=== PATIENT | female | born 2000 | race Caucasian/White ===

== ENCOUNTER 2024-01-31 21:20 | Emergency (ER) | payer MEDICAID, SELFPAY ==
[2024-01-31 21:22] VITALS: BP 129/70; PULSE 79; RESP 16; O2SAT 100; BMI 21.5
--- NOTE | 2024-01-31 21:33 | XRR_ITS ---
PROCEDURE INFORMATION: Exam: XR Chest Exam date and time: 01/31/2024 9:40 PM Age: 23 years old Clinical indication: Angina pectoris; Patient HX: Chest pain TECHNIQUE: Imaging protocol: Radiologic exam of the chest. Views: 1 view. COMPARISON: No relevant prior studies available. FINDINGS: Lungs: The lungs are clear. No pulmonary consolidation. Nonspecific right hilar prominence. Pleural spaces: No pleural effusion or pneumothorax. Heart/Mediastinum: Unremarkable. No cardiomegaly. Bones/joints: No acute osseous abnormalities are seen. XR/XR chest 1V portable [id number] IMPRESSION: 1. Nonspecific right hilar prominence. Recommend short interval follow-up versus nonemergent CT chest. 2. No acute cardiopulmonary disease.
[2024-01-31 22:15] LABS: Basophils # 0.1 10^3/uL (0.0-0.1); Basophils % 0.7 %; Eosinophils # 0.1 10^3/uL (0.0-0.8); Eosinophils % 1.4 %; Hematocrit 38.9 % (36-47); Lymphocytes # 4.2 10^3/uL (0.8-4.8); Lymphocytes % 40.9 %; Mean Corpuscular HGB Conc 31.4 g/dL (30-55); Mean Corpuscular Hemoglobin 27.7 pg (27-33); Mean Corpuscular Volume 88.4 fl (85-98); Monocytes # 0.8 10^3/uL (0.2-0.9); Monocytes % 7.3 %; Neutrophils # 5.13 10^3/uL (1.8-7.7); Neutrophils % 49.5 %; Nucleated Red Blood Cells % 0 %; Platelet Count 397 10^3/cmm (157-399); Red Cell Distribution Width 11.7 % (12.1-15.1); White Blood Count 10.34 10^3/uL (3.29-11.43)
--- NOTE | 2024-01-31 22:30 | ECG_ITS ---
[facility] Test Date: 2024-01-31 Pat Name: Celeste Wiley Department: Room: Gender: Female [employer] Operator: : 2000 Requested By: Elan Seo Order Number: [id number] Armando MD: Sydney Martines M.D. Measurements Intervals [place] Rate: 63 P: 43 [place]: 128 QRS: 59 QRSD: 90 T: 71 QT: 415 QTc: 425 Interpretive Statements SINUS RHYTHM POSSIBLE RIGHT VENTRICULAR CONDUCTION DELAY [RSR (QR) IN V1/V2] MODERATE T-WAVE ABNORMALITY, CONSIDER ANTERIOR ISCHEMIA [-0.1+ mV T-WAVE IN V3/V4] No previous ECG available for comparison Electronically Signed On 02-01-2024 19:28:08 CDT by Sydney Martines M.D. [email or web address] [email or web address] [email or web address] [facility].[employer]/store/OM/[id number]
[2024-01-31 22:33] LABS: Troponin(5th) Baseline < 6 ng/L (0-10)
[2024-01-31 22:37] VITALS: BP 99/78; PULSE 77; RESP 18; O2SAT 99
[2024-01-31 22:37] LABS: Chloride 104 mmol/L (98-107); Potassium 4.2 mmol/L (3.5-5.1); Sodium 139 mmol/L (136-145)
--- NOTE | 2024-01-31 22:39 | CTR_ITS ---
PROCEDURE INFORMATION: Exam: CT Chest With Contrast; Diagnostic Exam date and time: 01/31/2024 10:49 PM Age: 23 years old Clinical indication: Other: Abnormal cxr; Prior surgery; Surgery date: 6+ months; Surgery type: Open heart for coronary repair. Node ablation; Patient HX: PT C/O chest pain. RT hilar prominence noted on cxr. ; Additional info: Cp, eval cxr findings TECHNIQUE: Imaging protocol: Diagnostic computed tomography of the chest with contrast. Radiation optimization: All CT scans at this facility use at least one of these dose optimization techniques: automated exposure control; mA and/or kV adjustment per patient size (includes targeted exams where dose is matched to clinical indication); or iterative reconstruction. Contrast material: OMNI 350; Contrast volume: 100 ml; Contrast route: INTRAVENOUS (IV); COMPARISON: CR (CHEST, ) 01/31/2024 9:40 PM RADIATION DOSE METRICS: Total DLP (mGy-cm): 195.39 FINDINGS: Lungs: Calcified granuloma in the right lower lobe. 8 mm adjacent ground-glass nodule likely postinflammatory nature. No consolidation. No pulmonary mass or suspicious pulmonary nodule. Pleural spaces: No pleural effusion or pneumothorax. Heart: Heart size is within normal limits. There is no pericardial effusion or pericardial thickening. Coronary arteries: No coronary artery calcification. Lymph nodes: There are no enlarged mediastinal, axillary, or hilar lymph nodes identified. Multiple calcified right hilar lymph nodes which account for abnormality on recent chest radiograph. Vasculature: The aorta is normal in course and caliber. No significant atherosclerotic calcifications are present. Spleen: Calcified splenic granulomata are noted. The spleen is otherwise normal. Bones/joints: No acute osseous abnormalities are seen. Soft tissues: The soft tissues are within normal limits. CT/CT chest w con* [id number] IMPRESSION: 1. Multiple calcified right hilar lymph nodes which account for abnormality on recent chest radiograph. Correlate with old granulomatous disease. 2. 8 mm ground-glass nodule adjacent to calcified granuloma in the right lower lobe likely post inflammatory in nature. See comments section for Fleischner follow-up recommendations. 3. No evidence of acute cardiopulmonary disease. COMMENTS: Recommend CT Chest at 6-12 months to confirm persistence of the nodule, then CT Chest at 3 years and 5 years. (Reference: [place]) REFERENCES: MacMahon H, et al. Guidelines for Management of Incidental Pulmonary Nodules Detected on CT Images: From the Fleischner Society 2017. Radiology. 2017;284(1):228-243.
[2024-01-31 22:49] LABS: Alanine Aminotransferase 7 U/L (0-33); Albumin Level 4.3 g/dL (3.5-5.2); Alkaline Phosphatase 75 U/L (35-105); Anion Gap 16.2 (5-19); Aspartate Amino Transferase 14 U/L (0-32); Blood Urea Nitrogen 9 mg/dL (6-20); Calcium 9.4 mg/dL (8.5-10.5); Carbon Dioxide 23 mmol/L (22-29); Globulin 2.8 g/dL (1.3-4.6); Glucose 101 mg/dL (65-115); Magnesium 1.7 mg/dL (1.7-2.3); Osmolality Calculated 289 mOsm/kg (285-295); Total Bilirubin 0.4 mg/dL (0.15-1.2); Total Protein 7.1 g/dL (6.6-8.7)
[2024-01-31] MEDS: iohexol 350 mg/mL 500 mL Btl (per mL) IV (22:50)
--- NOTE | 2024-01-31 23:29 | ED_ITS ---
Documented by User: CHRISTINA Luciano 01/31/24 23:39 HPI - Chest Pain 2 General: Chief Complaint: Chest Pain Stated Complaint: Chest Pain Time Seen by Provider: 01/31/24 21:54 Source: patient Mode of arrival: ambulatory Limitations: no limitations History of Present Illness: Patient is a 23-year-old female presenting to the emergency department complaining of chest pain for the past 3 days. She is was seen at [facility] in [place] yesterday for the same thing where she had a negative cardiac workup. She notes today that the pain has continued and shoots through to her back and down her right arm. She notes a history of right coronary artery unroofing procedure and states she recently had sternal plates taken out. She is noting some dizziness and shortness of breath. 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 She is denying any nausea, vomiting, palpitations, or any other symptoms. She notes that her pain has been constant and is central in location. She has never had this pain prior to 72 hours ago. It occurred at rest. MD complaint: chest pain Pertinent past history: other (prior cardiac surgery) Onset (ago): day(s) Timing of current episode: constant Prior episodes: No Onset: during rest Pain location: substernal Pain radiation: right arm and back Severity: moderate Quality: sharp Relieving factors: nothing Exacerbating factors: nothing Associated symptoms: Reports dyspnea; Deny abdominal pain, fever(s), nausea, palpitations or vomiting Review of Systems 2 General: Reports: 10 or more systems reviewed and unremarkable except in HPI and below Const: Denies: fever(s), chills or fatigue Eyes: Denies: change in vision ENMT: Denies: throat pain, ear or mastoid pain or nasal discharge Card: Reports: chest pain; Denies: palpitations, swelling of feet/ankles or lightheadedness Resp: Reports: dyspnea; Denies: productive cough or wheezing GI: Denies: abdominal pain, nausea, vomiting, diarrhea or constipation : Denies: flank pain, difficulty voiding, dysuria or urinary frequency Musc: Denies: neck pain, back pain or joint pain Skin/Breast: Denies: rash Neuro: Reports: dizziness; Denies: headache(s), numbness in extremities or weakness in extremities Physical Exam 2 Const: COMMON NORMALS: no acute distress, patient oriented x3 and no limitations GENERAL APPEARANCE: cooperative, comfortable and well developed ORIENTATION/CONSCIOUSNESS: Yes awake, Yes oriented to person, Yes oriented to place and Yes oriented to time HENMT: COMMON NORMALS: normocephalic, atraumatic and hearing grossly normal bilaterally HEAD & SCALP: normocephalic and atraumatic Eye: COMMON NORMALS: Equal, round and reactive pupils present, EOMs intact bilaterally and conjunctivae normal CONJUNCTIVA: Yes conjunctivae normal P UPIL: Yes Equal, round and reactive pupils present Neck/C-Spine: COMMON NORMALS: full ROM, supple and no JVD Chest: CHEST: Yes Surgical scars present (Chest) (Postoperative sternotomy scar) Resp: COMMON NORMALS: normal respiratory effort, No retractions, No use of accessory muscles and clear to auscultation bilaterally AUSCULTATION: clear to auscultation bilaterally Cardio: COMMON NORMALS: no JVD, regular rate, regular rhythm, No clicks present (Cardio), No murmurs present (Cardio) and No rub (Cardio) RATE: r egular rate RHYTHM: regular rhythm GI: COMMON NORMALS: Normal to inspection, nondistended, normoactive bowel sounds present, Soft to palpation and non-tender AUSCULTATION: Yes normoactive bowel sounds PALPATION: Yes Soft to palpation RECTAL EXAM: d eferred Extremity: COMMON NORMALS: normal to inspection, full ROM and capillary refill normal Neuro: COMMON NORMALS: patient oriented x3, moves all extremities, no focal motor deficits and no sensory deficits noted SENSORIUM/ORIENTATION: Yes oriented to person, Yes oriented to place and Yes oriented to time Psych: COMMON NORMALS: mental status grossly normal and Normal thought process present THOUGHT PROCESS: Normal thought process present Skin: COMMON NORMALS: no rashes or lesions noted GENERAL SKIN EXAM: no rashes or lesions noted Course 2 Vital Signs: Vital signs: Vital Signs Pulse Rate 77 01/31/24 22:37 Respiratory Rate 18 01/31/24 22:37 Blood Pressure 99/78 01/31/24 22:37 Pulse Oximetry 99 01/31/24 22:37 Oxygen Delivery Me thod Room Air 01/31/24 21:22 MDM - Chest Pain Medical Decision Making This patient was seen for chest pain she has been having the past 3 days. She was seen in [facility] yesterday for the same complaints where she had a completely negative workup. She arrives stating the pain has continued, and she is discouraged that she had a few labs that were discounted yesterday. She notes that she had a low white count, hematocrit, and an elevated liver enzyme. She does report to me history of cardiac procedure, as well as multiple undocumented medical problems. She arrives with normal vitals, normal O2 sats. Examination revealed a nontoxic individual with normal cardiopulmonary auscultation. No other abnormalities reported on examination. CBC was normal. CMP was normal. Baseline troponin normal. Chest x-ray showed a right hilar prominence in which I ordered a chest CT for further evaluation. This showed a calcified right hilar lymph node, as well as an 8 mm nodule that was recommended to be followed up in 6-12 months. Her EKG was also unremarkable. I do have very low suspicion that patient's pain is cardiac in nature, and most likely musculoskeletal versus other benign etiologies. Patient has a operational meteorologist who she is not due to see until May, and I encouraged her to call their office to potentially schedule an earlier appointment. She is also due to have a consultation with primary care tomorrow in regards to medication reconciliation. I did encourage her to follow-up with primary care as well. I gave patient thorough return precautions including worsening of her chest pain or breathing difficulties, to which she understands. All other questions and concerns addressed at this time. Patient will be discharged home. Lab Data I reviewed the patient's lab results. 01/31/24 22:11 01/31/24 22:11 Radiology Impressions Chest X-Ray 01/31/24 21:33 IMPRESSION: 1. Nonspecific right hilar prominence. Recommend short interval follow-up versus nonemergent CT chest. 2. No acute cardiopulmonary disease. Chest CT 01/31/24 22:39 IMPRESSION: 1. Multiple calcified right hilar lymph nodes which account for abnormality on recent chest radiograph. Correlate with old granulomatous disease. 2. 8 mm ground-glass nodule adjacent to calcified granuloma in the right lower lobe likely post inflammatory in nature. See comments section for Fleischner follow-up recommendations. 3. No evidence of acute cardiopulmonary disease. COMMENTS: Recommend CT Chest at 6-12 months to confirm persistence of the nodule, then CT Chest at 3 years and 5 years. (Reference: [place]) REFERENCES: [place] Truong et al. Guidelines for Management of Incidental Pulmonary Nodules Detected on CT Images: From the Fleischner Society 2017. Radiology. 2017;284(1):228-243. Laboratory Results WBC 10.34 10^3/uL (3.29-11.43) 01/31/24 22:11 RBC 4.40 10^6/uL (3.85-5.65) 01/31/24 22:11 Hgb 12.20 g/dL (11.27-16.99) 01/31/24 22:11 Hct 38.9 % (36-47) 01/31/24 22:11 MCV 88.4 fl (85-98) 01/31/24 22:11 MCH 27.7 pg (27-33) 01/31/24 22:11 MCHC 31.4 g/dL (30-55) 01/31/24 22:11 RDW 11.7 % (12.1-15.1) L 01/31/24 22:11 Plt Count 397 10^3/cmm (157-399) 01/31/24 22:11 MPV 10.0 fL (7.4-10.4) 01/31/24 22:11 Neut % (Auto) 49.5 % 01/31/24 22:11 Lymph % (Auto) 40.9 % 01/31/24 22:11 Taney % (Auto) 7.3 % 01/31/24 22:11 Eos % (Auto) 1.4 % 01/31/24 22:11 Baso % (Auto) 0.7 % 01/31/24 22:11 Neut # (Auto) 5.13 10^3/uL (1.8-7.7) 01/31/24 22:11 Lymph # (Auto) 4.2 10^3/uL (0.8-4.8) 01/31/24 22:11 Taney # (Auto) 0.8 10^3/uL (0.2-0.9) 01/31/24 22:11 Eos # (Auto) 0.1 10^3/uL (0.0-0.8) 01/31/24 22:11 Baso # (Auto) 0.1 10^3/uL (0.0-0.1) 01/31/24 22:11 Nucleated RBC % (auto) 0 % 01/31/24 22:11 Nucleated RBCs # 0.0 /100WBC 01/31/24 22:11 Sodium 139 mmol/L (136-145) 01/31/24 22:11 Potassium 4.2 mmol/L (3.5-5.1) 01/31/24 22:11 Chloride 104 mmol/L (98-107) 01/31/24 22:11 Carbon Dioxide 23 mmol/L (22-29) 01/31/24 22:11 Anion Gap 16.2 (5-19) 01/31/24 22:11 BUN 9 mg/dL (6-20) 01/31/24 22:11 Creatinine 0.7 mg/dL (0.5-0.9) 01/31/24 22:11 GFR Calculation 102.0 mL/min (90-130) 01/31/24 22:11 Glucose 101 mg/dL (65-115) 01/31/24 22:11 Calculated Osmolality 289 mOsm/kg (285-295) 01/31/24 22:11 Calcium 9.4 mg/dL (8.5-10.5) 01/31/24 22:11 Magnesium 1.7 mg/dL (1.7-2.3) 01/31/24 22:11 Total Bilirubin 0.4 mg/dL (0.15-1.2) 01/31/24 22:11 AST 14 U/L (0-32) 01/31/24 22:11 ALT 7 U/L (0-33) 01/31/24 22:11 Alkaline Phosphatase 75 U/L (35-105) 01/31/24 22:11 Troponin T Baseline < 6 ng/L (0-10) 01/31/24 22:11 Total Protein 7.1 g/dL (6.6-8.7) 01/31/24 22:11 Albumin 4.3 g/dL (3.5-5.2) 01/31/24 22:11 Globulin 2.8 g/dL (1.3-4.6) 01/31/24 22:11 All radiology interpretation(s) finalized by discharge EKG Data EKG 1: I personally reviewed and interpreted this EKG as follows: EKG interpretation date: 01/31/24 EKG interpretation time: 22:31 Prior EKG tracings: not available for review Interpretation: Normal sinus rhythm. Rate 63. No acute ST segment changes. No previous for comparison. Discharge Plan Discharge Patient Disposition: Home Clinical Impression: Chest pain Qualifiers: Chest pain type: unspecified Qualified Code(s): R07.9 - Chest pain, unspecified Condition: Stable Discharge Orders: Discharge ED (Routine); Ordered 01/31/24 Ordered By: Saleem Edwards Discharge Diet: Usual diet Discharge Activity: Resume usual activity Patient Instructions: Chest Pain (ED) Activity Restrictions/Additional Instructions: Continue taking medications as normal. Please monitor for any new or concerning symptoms you have been present for reevaluation. Follow-up with primary care. Consider calling cardiology to get into see them before May. Stand Alone Forms: Work/School Release Coding Level of Care Code ED Travel Manager for Chg Fwd Documented by User: Jalil Call DO 02/05/24 09:03 HPI - Chest Pain 2 General: Chief Complaint: Chest Pain Stated Complaint: Chest Pain Time Seen by Provider: 01/31/24 21:54 Course 2 Vital Signs: Vital signs: Vital Signs Pulse Rate 77 01/31/24 22:37 Respiratory Rate 18 01/31/24 22:37 Blood Pressure 99/78 01/31/24 22:37 Pulse Oximetry 99 01/31/24 22:37 Oxygen Delivery Me thod Room Air 01/31/24 21:22 MDM - Chest Pain Medical Decision Making This patient was seen for chest pain she has been having the past 3 days. She was seen in [place] ER yesterday for the same complaints where she had a completely negative workup. She arrives stating the pain has continued, and she is discouraged that she had a few labs that were discounted yesterday. She notes that she had a low white count, hematocrit, and an elevated liver enzyme. She does report to me history of cardiac procedure, as well as multiple undocumented medical problems. She arrives with normal vitals, normal O2 sats. Examination revealed a nontoxic individual with normal cardiopulmonary auscultation. No other abnormalities reported on examination. CBC was normal. CMP was normal. Baseline troponin normal. Chest x-ray showed a right hilar prominence in which I ordered a chest CT for further evaluation. This showed a calcified right hilar lymph node, as well as an 8 mm nodule that was recommended to be followed up in 6-12 months. Her EKG was also unremarkable. I do have very low suspicion that patient's pain is cardiac in nature, and most likely musculoskeletal versus other benign etiologies. Patient has a operational meteorologist who she is not due to see until May, and I encouraged her to call their office to potentially schedule an earlier appointment. She is also due to have a consultation with primary care tomorrow in regards to medication reconciliation. I did encourage her to follow-up with primary care as well. I gave patient thorough return precautions including worsening of her chest pain or breathing difficulties, to which she understands. All other questions and concerns addressed at this time. Patient will be discharged home. Chart reviewed Lab Data 01/31/24 22:11 01/31/24 22:11 Radiology Impressions Chest X-Ray 01/31/24 21:33 IMPRESSION: 1. Nonspecific right hilar prominence. Recommend short interval follow-up versus nonemergent CT chest. 2. No acute cardiopulmonary disease. Chest CT 01/31/24 22:39 IMPRESSION: 1. Multiple calcified right hilar lymph nodes which account for abnormality on recent chest radiograph. Correlate with old granulomatous disease. 2. 8 mm ground-glass nodule adjacent to calcified granuloma in the right lower lobe likely post inflammatory in nature. See comments section for Fleischner follow-up recommendations. 3. No evidence of acute cardiopulmonary disease. COMMENTS: Recommend CT Chest at 6-12 months to confirm persistence of the nodule, then CT Chest at 3 years and 5 years. (Reference: [place]) REFERENCES: [place] Truong et al. Guidelines for Management of Incidental Pulmonary Nodules Detected on CT Images: From the Fleischner Society 2017. Radiology. 2017;284(1):228-243. Laboratory Results WBC 10.34 10^3/uL (3.29-11.43) 01/31/24 22:11 RBC 4.40 10^6/uL (3.85-5.65) 01/31/24 22:11 Hgb 12.20 g/dL (11.27-16.99) 01/31/24 22:11 Hct 38.9 % (36-47) 01/31/24 22:11 MCV 88.4 fl (85-98) 01/31/24 22:11 MCH 27.7 pg (27-33) 01/31/24 22:11 MCHC 31.4 g/dL (30-55) 01/31/24 22:11 RDW 11.7 % (12.1-15.1) L 01/31/24 22:11 Plt Count 397 10^3/cmm (157-399) 01/31/24 22:11 MPV 10.0 fL (7.4-10.4) 01/31/24 22:11 Neut % (Auto) 49.5 % 01/31/24 22:11 Lymph % (Auto) 40.9 % 01/31/24 22:11 Taney % (Auto) 7.3 % 01/31/24 22:11 Eos % (Auto) 1.4 % 01/31/24 22:11 Baso % (Auto) 0.7 % 01/31/24 22:11 Neut # (Auto) 5.13 10^3/uL (1.8-7.7) 01/31/24 22:11 Lymph # (Auto) 4.2 10^3/uL (0.8-4.8) 01/31/24 22:11 [place]aney # (Auto) 0.8 10^3/uL (0.2-0.9) 01/31/24 22:11 Eos # (Auto) 0.1 10^3/uL (0.0-0.8) 01/31/24 22:11 Baso # (Auto) 0.1 10^3/uL (0.0-0.1) 01/31/24 22:11 Nucleated RBC % (auto) 0 % 01/31/24 22:11 Nucleated RBCs # 0.0 /100WBC 01/31/24 22:11 Sodium 139 mmol/L (136-145) 01/31/24 22:11 Potassium 4.2 mmol/L (3.5-5.1) 01/31/24 22:11 Chloride 104 mmol/L (98-107) 01/31/24 22:11 Carbon Dioxide 23 mmol/L (22-29) 01/31/24 22:11 Anion Gap 16.2 (5-19) 01/31/24 22:11 BUN 9 mg/dL (6-20) 01/31/24 22:11 Creatinine 0.7 mg/dL (0.5-0.9) 01/31/24 22:11 GFR Calculation 102.0 mL/min (90-130) 01/31/24 22:11 Glucose 101 mg/dL (65-115) 01/31/24 22:11 Calculated Osmolality 289 mOsm/kg (285-295) 01/31/24 22:11 Calcium 9.4 mg/dL (8.5-10.5) 01/31/24 22:11 Magnesium 1.7 mg/dL (1.7-2.3) 01/31/24 22:11 Total Bilirubin 0.4 mg/dL (0.15-1.2) 01/31/24 22:11 AST 14 U/L (0-32) 01/31/24 22:11 ALT 7 U/L (0-33) 01/31/24 22:11 Alkaline Phosphatase 75 U/L (35-105) 01/31/24 22:11 Troponin T Baseline < 6 ng/L (0-10) 01/31/24 22:11 Total Protein 7.1 g/dL (6.6-8.7) 01/31/24 22:11 Albumin 4.3 g/dL (3.5-5.2) 01/31/24 22:11 Globulin 2.8 g/dL (1.3-4.6) 01/31/24 22:11 Discharge Plan Discharge Patient Disposition: Home Clinical Impression: Chest pain Qualifiers: Chest pain type: unspecified Qualified Code(s): R07.9 - Chest pain, unspecified Condition: Stable Discharge Orders: Discharge ED (Routine); Ordered 01/31/24 Ordered By: Saleem Edwards Discharge Diet: Usual diet Discharge Activity: Resume usual activity Patient Instructions: Chest Pain (ED) Activity Restrictions/Additional Instructions: Continue taking medications as normal. Please monitor for any new or concerning symptoms you have been present for reevaluation. Follow-up with primary care. Consider calling cardiology to get into see them before May. Stand Alone Forms: Work/School Release Coding Level of Care Code ED Travel Manager for Alok Goyal
--- NOTE | 2024-01-31 23:33 | ECG_ITS ---
[facility] Test Date: 2024-01-31 Pat Name: Celeste Wiley Department: Room: Gender: Female Fisher Trammel Net: : 2000 Requested By: Elan Seo Order Number: [id number] Armando MD: Sydney Martines M.D. Measurements Intervals [place] Rate: 86 P: 46 SD: 117 QRS: 30 QRSD: 80 T: 63 QT: 391 QTc: 468 Interpretive Statements SINUS RHYTHM WITH SHORT SD INTERVAL WITH FREQUENT VENTRICULAR PREMATURE COMPLEXES POSSIBLE RIGHT VENTRICULAR CONDUCTION DELAY [RSR (QR) IN V1/V2] NONSPECIFIC ST & T-WAVE ABNORMALITY ABNORMAL RHYTHM ECG No previous ECG available for comparison Electronically Signed On 02-01-2024 19:58:07 CDT by Sydney Martines M.D. [id number]
== END 2024-02-01 00:04 | disposition home or self-care (01) ==
PROVIDERS: Emergency Medicine; Emergency Provider Physician Assistant
DX: R07.9 Chest pain, unspecified (principal)
CPT/HCPCS: 71045; 71260; 80053; 83735; 84484; 85025; 93005; 99285; Q9967